=== PATIENT | male | born 1990 | race Two or more races ===

== ENCOUNTER 2017-02-12 11:43 | Emergency (ER) | payer OTHER ==
[2017-02-12] MEDS ORDERED: HYDROcod/ACETAM 5/325 MG TABLET PO STA ×2 (12:10→14:31)
[2017-02-12] MEDS ORDERED: HYDROcod/ACETAM 5/325 MG TABLET ONE ×2 (12:13→14:32)
[2017-02-12] MEDS ORDERED: fentaNYL 100 MCG/2 ML VIAL IVP STA (13:04)
[2017-02-12] MEDS ORDERED: fentaNYL 100 MCG/2 ML VIAL ONE (13:18)
[2017-02-12] MEDS ORDERED: PROPOFOL 1000 MG/100 ML 100 ML IV ONE (13:20)
[2017-02-12] MEDS ORDERED: PROPOFOL 200 MG/20 ML VIAL IVP STA (13:32)
== END 2017-02-12 14:34 | disposition home or self-care (01) ==
DX: S42.342A Displaced spiral fracture of shaft of humerus, left arm, initial encounter for closed fracture (principal); S62.637A Displaced fracture of distal phalanx of left little finger, initial encounter for closed fracture; V19.3XXA Pedal cyclist (driver) (passenger) injured in unspecified nontraffic accident, initial encounter; Y93.79 Activity, other specified sports and athletics; Y92.480 Sidewalk as the place of occurrence of the external cause; Y99.8 Other external cause status
CPT/HCPCS: 29105; 29130; 73060; 73080; 73140; 94770; 99152; 99284; A9270

== ENCOUNTER 2018-01-03 13:00 | Outpatient (CLI) | payer OTHER ==
[~2018-01-03 13:00] MED LIST: GADOPENTETATE DIMEGLUMINE 5 ML VIAL IVP ONE; IOTHALAMATE MEGLUMINE 50 ML VIAL ONE
[2018-01-03] MEDS ORDERED: GADOPENTETATE DIMEGLUMINE 5 ML VIAL IVP ONE ×2 (14:12)
[2018-01-03] MEDS ORDERED: IOTHALAMATE MEGLUMINE 50 ML VIAL IVP ONE ×2 (14:12)
[2018-01-03] MEDS: BUFFERED LIDOCAINE 10 ML SYRINGE IU ONE (14:15)
--- NOTE | 2018-01-03 15:46 | XRAY Report ---
FLUOROSCOPICALLY-GUIDED LEFT SHOULDER INJECTION FOR MR ARTHROGRAM: 01/03/2018 CLINICAL INDICATION: Pain. FINDINGS: Following obtaining informed consent, the patient's left shoulder was prepped and draped in the usual sterile fashion. The skin and soft tissues were anesthetized with lidocaine. A spinal needle was inserted into the glenohumeral joint, and following confirmation of needle positioning, a combination of iodinated contrast, dilute gadolinium, and lidocaine was injected intraarticularly. The patient tolerated the procedure well. No immediate complications. Spot image reveals no evidence of contrast extravasation. IMPRESSION: SUCCESSFUL LEFT SHOULDER INJECTION FOR MR ARTHROGRAM. FLUOROSCOPY TIME: 44 SECONDS; 1 SPOT IMAGE OBTAINED. TD: 01/03/2018 15:45
--- NOTE | 2018-01-03 17:26 | MRI Report ---
EXAM: LEFT SHOULDER MRI ARTHROGRAM WITH CONTRAST EXAM DATE: 01/03/2018 02:32 PM. CLINICAL HISTORY: Pain in left shoulder. COMPARISON: None. TECHNIQUE: Multiplanar, multisequence T1-weighted and fluid-sensitive sequences of the shoulder after an arthrographic injection of dilute gadolinium, dictated under a separate exam. Other: None. FINDINGS: Acromioclavicular Region: The acromion is Type II unipartite. 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 The coracoacromial and coracoclavicular ligaments are intact. Trace amount of fluid but no contrast m aterial is seen in the bursa. Glenohumeral Region: No subluxation. No loose bodies. Some global articular cartilaginous thinning on both sides of the glenohumeral joint. No significant osteophytosis. The glenohumeral ligaments and j oint capsule are unremarkable. Bone Marrow: No fracture, marrow edema or bone lesions. Labrum: Labrum appears unremarkable, there is a small sub-labral hole anteriorly. There is also some undermining of the superior labral recess, no convincing evidence for SLAP injury. Biceps Tendon: The long head of the biceps tendon and biceps conrad are intact. Musculature/Rotator Cuff: The subscapularis, supraspinatus, infraspinatus, and teres minor tendons ar e intact. No edema or fatty atrophy. Other: The subcutaneous tissues are unremarkable. IMPRESSION: 1. Type II unipartite undersurface osseous acromion shape. AC joint shows moderate osteoarthritic delgado nge. Some fluid but no contrast material is seen in the bursa, probably indicating bursitis. 2. Some global articular cartilaginous thinning on both sides of the glenohumeral joint. No significa nt osteophytosis. 3. Labrum appears unremarkable. There is a small sublabral hole anteriorly and an undermining superio r labral recess, normal variant. No convincing evidence for SLAP injury or labral tear. 4. Rotator cuff appears unremarkable. Subcutaneous tissues are unremarkable as well. [facility] MUSCULOSKELETAL RADIOLOGY SECTION Referring Provider Line: [phone] SITE ID: [id number]
== END 2018-01-03 13:01 | disposition home or self-care (01) ==
LOC: DI 13:00
PROVIDERS: ATTEND Orthopaedic Surgery
DX: M19.012 Primary osteoarthritis, left shoulder (principal)
CPT/HCPCS: 23350; 73222; 77002; Q9961

== ENCOUNTER 2018-10-16 22:36 | Emergency (ER) | payer OTHER ==
[2018-10-16 23:24] LABS: BILIRUBIN,URINE NEGATIVE (NEGATIVE); GLUCOSE, URINE (UA) NEGATIVE (NEGATIVE); KETONES,URINE (UA) NEGATIVE (NEGATIVE); LEUKOCYTE ESTERASE, URINE NEGATIVE (NEGATIVE); NITRITE,URINE NEGATIVE (NEGATIVE); OCCULT BLOOD,URINE NEGATIVE (NEGATIVE); PROTEIN,URINE NEGATIVE (NEGATIVE); UROBILINOGEN,URINE 0.2 (NORMAL) E.U./dL (NORMAL)
[2018-10-16 23:25] LABS: CLARITY,URINE CLEAR (CLEAR)
[2018-10-16] MEDS ORDERED: IBUPROFEN 400 MG TABLET PO STA (23:44)
--- NOTE | 2018-10-16 23:47 | ED Physician Documentation ---
History of Present Illness - Stated complaint Stated Complaint: MALE - Chief complaint Chief Complaint: Abd Pain - Additonal information Additional information: hx from pt healthy 27 y/o AD [place] male to ED [facility] sharp pains adjacent to l testicle no injury no dc no redness no hx same pains are sharp severe but fleeting Review of Systems Constitutional: denies: Fever Cardiac: denies: Chest pain / pressure Respiratory: denies: Dyspnea GI: denies: Abdominal Pain, Nausea : reports: Testicular pain. denies: Discharge Endocrine: denies: Easy bruising / bleeding Immunocompromised: denies: Immunocompromised PD PAST MEDICAL HISTORY - Past Surgical History Past Surgical History: Yes - Present Medications Home Medications: Ambulatory Orders Medication Instructions Recorded Confirmed No Known Home Medications 10/16/18 10/16/18 - Allergies Allergies/Adverse Reactions: Allergies Allergy/AdvReac Type Severity Reaction Status Date / Time Penicillins Allergy Unknown Verified 10/16/18 22:44 fruit Allergy Unknown Uncoded 10/16/18 22:44 - Social History Does the pt smoke?: No Smoking Status: Never smoker - Immunizations Immunizations are current?: Yes PD ED PE NORMAL - Vitals Vital signs reviewed: Yes - Cardiac Cardiac: RRR - Respiratory Respiratory: No respiratory distress, Clear bilaterally - Abdomen Abdomen: Non tender - Male Male : Other (no lesionsm no dc, no scrotial erytehma or swelling, no follicultiis/abscess, testes desc nl lie no mass minimally TTP no hernia, TTP posterior to L testicle with some fullness) Results - Vitals Vitals: Vital Signs - 24 hr 10/16/18 10/16/18 22:40 22:53 Temperature 36.7 C Heart Rate 68 83 Respiratory 16 18 Rate Blood Pressure 143/94 H 152/102 H O2 Saturation 97 96 Oxygen O2 Source Room air - Labs Labs: Laboratory Tests 10/16/18 23:18 Urine Color YELLOW Urine Clarity CLEAR Urine pH 7.0 Ur Specific [place] 1.020 Urine Protein NEGATIVE Urine Glucose (UA) NEGATIVE Urine Ketones NEGATIVE Urine Occult Blood NEGATIVE Urine Nitrite NEGATIVE Urine Bilirubin NEGATIVE Urine Urobilinogen 0.2 (NORMAL) Ur Leukocyte Esterase NEGATIVE Ur Microscopic Review NOT INDICATED Urine Culture Comments NOT INDICATED - Rads (name of study) testicular sono with doppler Radiology: See rad report (no testicular mass, no trosion, 2.2 cm L epididymal cyst, small trena hydrocele, L varicocele) Departure - Departure Disposition: 01 Home, Self Care Clinical Impression: Epididymal cyst Condition: Good Comments: The ultrasound showed good blood flow to the testicles and no testicular mass or infection. The pain and swelling you can feel are from a 2 cm cyst off the epididymis. These usually resolve on their own and do not need surgery. Recommend motrin for pain and supportive briefs rather than boxers Ice wrapped in a towel and applied for 20 minutes at a time may help as well [place] If the pain and swelling last more than a week or two, you may need a referral to urology. You also have a varicocele (enlarged veins) on the left side - this is not uncommon and should not need any treatment as long as the testicle is healthy (and it appears to be) Forms: Activity restrictions
--- NOTE | 2018-10-17 02:00 | Ultrasound Report ---
Reason: int L testicular pain Procedure Date: 10/17/2018 Accession Number: [id number] / [id number] Procedure: US - Testicle w/Doppler CPT Code: FULL RESULT: EXAM: SCROTAL ULTRASOUND EXAM DATE: 10/17/2018 01:24 AM. CLINICAL HISTORY: Int L testicular pain. COMPARISON: None. TECHNIQUE: Real-time scanning was performed with static images obtained. Color-flow images were utilized. FINDINGS: Right: Testis: 4 x 2.4 x 2.9 cm. Normal size and echotexture. No mass, calcification, or abnormal blood flow. Epididymis: 0.8 x 1.1 x 1 cm. Normal size and echotexture. No mass or abnormal blood flow. Hydrocele: Small right hydrocele noted. Varicocele: None. Left: Testis: 3.8 x 2.3 x 2.8 cm. Normal size and echotexture. No mass, calcification, or abnormal blood flow. Epididymis: 2.6 x 2 x 2.8 cm. Normal size and echotexture. No mass or abnormal blood flow. Anechoic 1.9 x 1.9 x 2.2 cm epididymal head cyst. Hydrocele: Small left hydrocele noted. Varicocele: Positive for varicoceles measuring up to 4 mm. IMPRESSION: 1. No testicular mass or torsion. 2. 2.2 cm left epididymal cyst. Otherwise, both epididymides normal. 3. Small bilateral hydroceles. Left-sided varicoceles. [facility]
[2018-10-17 02:15] VITALS: BP 130/94
== END 2018-10-17 02:18 | disposition home or self-care (01) ==
LOC: ED 22:36
DX: N50.3 Cyst of epididymis (principal); N43.3 Hydrocele, unspecified; I86.1 Scrotal varices
CPT/HCPCS: 76870; 81003; 93975; 99282; 99283; A9270; 81001; 87086